=== PATIENT | male | born 1985 | race Caucasian/White ===

== ENCOUNTER 2020-01-09 20:05 | Emergency (ER) | payer SELFPAY ==
[~2020-01-09] VITALS: Ht 182.9 cm; Wt 95.3 kg
[2020-01-09 20:21] VITALS: Ht 182.9 cm; Wt 95.3 kg
[2020-01-09] MEDS ORDERED: VALTREX1000 MG PO (20:38)
[2020-01-09] MEDS ORDERED: CLEOCIN HCL300 MG PO (20:38)
[2020-01-09] MEDS ORDERED: KEFLEX500 MG PO (20:38)
[2020-01-09] MEDS ORDERED: VOLTAREN75 MG PO (20:38)
[2020-01-09 21:31] VITALS: BP 132/70
== END 2020-01-09 21:33 | disposition home or self-care (01) ==
LOC: D.ER 20:05
DX: L02.411 Cutaneous abscess of right axilla (principal); L03.90 Cellulitis, unspecified; B02.9 Zoster without complications; M79.621 Pain in right upper arm

== ENCOUNTER 2020-01-18 10:33 | Emergency (ER) | payer MEDICAID ==
[~2020-01-18] VITALS: Ht 182.9 cm; Wt 95.5 kg
[~2020-01-18 10:33] MED LIST: CLEOCIN HCL300 MG PO; KEFLEX500 MG PO; VALTREX1000 MG PO; VOLTAREN75 MG PO
[2020-01-18 10:40] VITALS: Ht 182.9 cm; Wt 95.5 kg
[2020-01-18 11:00] LABS: BASOPHILS 0.2 % (0-2); EOSINOPHILS 0.7 % (0-7); HEMATOCRIT 40.2 % (42.0-54.0); HEMOGLOBIN 14.1 g/dL (13.5-17.5); IMMATURE GRANULOCYTES 0.2 % (0-5); LYMPHOCYTES 9.3 % (15-50); MCH 33.5 pg (26.0-34.0); MCHC 35.1 g/dL (31.0-37.0); MCV 95.5 fL (80.0-100.0); MONOCYTES 6.9 % (2-11); NEUTROPHILS 82.7 % (40-80); PLATELET COUNT 186 10x3/uL (130-400); RBC 4.21 10x6/uL (4.20-6.10); RDW 12.9 % (11.5-14.5); WBC 9.1 10x3/uL (4.8-10.8)
[2020-01-18 11:02] LABS: BILIRUBIN NEGATIVE (NEGATIVE); KETONE NEGATIVE (NEGATIVE); NITRITE NEGATIVE (NEGATIVE); UROBILINOGEN NORMAL (NORMAL)
[2020-01-18 11:16] LABS: CALC OSMOLALITY 278 mosm/kg (275-300); CALCIUM 8.7 mg/dL (8.5-10.1); CARBON DIOXIDE 26.8 mmol/L (21.0-32.0); CHLORIDE - SERUM 102 mmol/L (98-107); CREATININE - SERUM 0.9 mg/dL (0.6-1.3); GLUCOSE 145 mg/dL (74-106); POTASSIUM - SERUM 3.9 mmol/L (3.5-5.1); SODIUM 138 mmol/L (136-145); UREA NITROGEN 13 mg/dL (7-18); eGFR NON AFRICAN AMERICAN > 90 mL/min (90-120)
[2020-01-18 11:19] LABS: ALBUMIN 4.1 g/dL (3.4-5.0); ALKALINE PHOSPHATASE 93 U/L (30-120); ALT (SGPT) 61 U/L (10-68); AMYLASE - SERUM 35 U/L (25-115); BILIRUBIN - TOTAL 0.69 mg/dL (0.2-1.3); LIPASE 69 U/L (73-393); PROTEIN - SERUM 7.5 g/dL (6.4-8.2)
[2020-01-18 11:28] LABS: TROPONIN-I < 0.017 ng/mL (0.000-0.060)
[2020-01-18] MEDS ORDERED: ACETAMINOPHEN500 M1 PO (13:04)
[2020-01-18] MEDS ORDERED: IBUPROFEN800 MG PO (13:04)
[2020-01-18] MEDS ORDERED: CYCLOBENZAPRINE10 MG PO (13:04)
[2020-01-18] MEDS ORDERED: FLORASTOR250 MG PO (13:04)
[2020-01-18 13:22] VITALS: BP 136/84
== END 2020-01-18 13:23 | disposition home or self-care (01) ==
LOC: D.ER 10:33
PROVIDERS: Family Medicine
DX: R10.31 Right lower quadrant pain (principal); R19.7 Diarrhea, unspecified